=== PATIENT | female | born 1980 | race Caucasian/White ===

== ENCOUNTER 2024-06-06 08:19 | Outpatient (AMB) | payer OTHER, SELFPAY ==
--- NOTE | 2024-06-06 08:25 | A.OFFPC_ITS ---
Vital Signs 06/06/24 08:26 Height 5 ft 5 in Weight 239 lb BMI 39.8 BP 120/80 Blood Pressure Location Rt brachial Position Sitting Pulse 65 Pulse Source Pulse Oximeter Pulse Oximetry (%) 97 Oxygen Delivery Method Room Air Intake Visit Reasons: Annual Physical Intake Note: pt is here for establish care, requesting PE pap: 2021 mammo: never done yet Fire Alarm Technician Required: No Accompanied by: Self / Same As Patient Allergies No Known Allergies [No Known Allergies*] Allergy (Verified 06/06/24 09:07) Medication List - Last Reconciled 06/06/24 by Kellee Costa MD norethindrone (contraceptive) 0.35 mg PO DAILY Tobacco use date assessed: 06/06/24 Dental Screening Dental Screen Date: 06/06/24 Did you have a dental visit in the last 12 months?: Yes Did you have a dental problem in the last 6 months where you did not have access to dental care?: No Was dental information given to patient?: Patient has dentist HPI HPI Comments History of Present Illness Details 44-year-old lady new to practice, here t [place] to establish care with new PCP, and requesting physical exam . She is up-to-date with her Pap, patient states she had it done in 2021 with benign findings, but has never had a mammogram for breast cancer screening. She has 1 child, conceive through in vitro fertilization. Had gallstones in the past underwent laparoscopic cholecystectomy. ] She states that she has been feeling well, with no complaints at present time. [facility] Medical History Obesity (BMI 30-39.9) Family history of thyroid disease History of in vitro fertilization History of cholelithiasis Surgical History Hx of section Hx of cholecystectomy Family History Mother Skin cancer Thyroid disease Father Pulmonary fibrosis Alcoholism Crohn's disease Paternal Aunt Bipolar disorder Crohn's disease Paternal Grandmother Bipolar disorder Maternal Aunt Substance abuse Diabetes mellitus Maternal Grandfather Alzheimer's dementia Diabetes mellitus Maternal Grandmother Alzheimer's dementia Diabetes mellitus Social History Housing: House Alcohol intake: current Alcohol intake frequency: a few times a week Alcohol type: beer Patient Tobacco Use Status: Never used Tobacco e-Cigarette/Vaping Use: Never Used service: No Current occupational status: employed Current occupation: teacher, [place] Current occupational exposures/hazards: No Cognitive needs: No Hearing needs: No Vision needs: No Female Reproductive History Menstrual Age of Menarche: 14 Duration of menses: 6-7 days Date of last menstrual period: 05/30/24 control method: pills Date of last pap smear: 01/02/22 Questionnaire PHQ-9 Over the last 2 weeks, how often have you been bothered by any of the following problems? 1. Little interest or pleasure in doing things: not at all 2. Feeling down, depressed, or hopeless: not at all 3. Trouble falling or staying asleep, or sleeping too much: not at all 4. Feeling tired or having little energy: not at all 5. Poor appetite or overeating: not at all 6. Feeling bad about yourself - or that you are a failure or have let yourself or your family down: not at all 7. Trouble concentrating on things, such as reading the newspaper or watching television: several days 8. Moving or speaking so slowly that other people could have noticed. Or the opposite - being so fidgety or restless that you have been moving around a lot more than usual: not at all 9. Thoughts that you would be better off or of hurting yourself in some way: not at all Total score: 1 Depression Screening Interpretation: Negative Depression Screening Done: Yes 65000 - PHQ-9 Billing: Yes Source: Developed by Drs. Familia Sanderson, Dione Mohr, Adin Flores and colleagues, with an educational yonas from [email or web address]. Thrive Questionnaire Date Thrive assessed: 06/03/24 I am a: Patient What is your living situation today?: I have a steady place to live Within the past 12 months, did the food you bought not last and you didn't have the money to get more?: Never true Within the past 12 months, did you worry whether your food would run out before you got money to buy more?: Never true Do you have trouble paying for medicines?: No Do you have trouble getting transportation to medical appointments?: No Do you have trouble paying your heating and electricity bill?: No Do you have trouble taking care of your child, family member or friend?: No Do you have trouble with day-to-day activities such as bathing, preparing meals, shopping, managing finances, etc.?: No Are you currently unemployed and looking for a job?: No Are you interested in more education?: No Please select the resources that you would like help with: Housing/Halfway Currently or been in a relationship where the following occur: No concerns reported THRIVE Score: 0 AUDIT C Alcohol Use Questionnaire (AUDIT-C) 1. How often do you have a drink containing alcohol?: 2-3 times a week 2. How many drinks containing alcohol do you have on a typical day when you are drinking?: 1 or 2 3. How often do you have six or more drinks on one occasion?: Less than monthly Total Score: 4 Score Reviewed/Action Taken: Yes TRISTAN-7 AMB Questionnaire TRISTAN-7 Date TRISTAN - 7 assessed: 06/06/24 Feeling nervous, anxious, or on edge: 1 = Several days Not being able to stop or control worryin = Several days Worrying too much about different things: 1 = Several days Trouble relaxin = More than half the days Being so restless that it is hard to sit still: 2 = More than half the days Becoming easily annoyed or irritable: 2 = More than half the days Feeling afraid as if something awful might happen: 1 = Several days Total TRISTAN-7 score (0-4 normal; 5-9 mild; 10-14 moderate; 15-21 severe): 10 Source: Developed by Drs. Familia Sanderson, Dione Mohr, Adin Flores and colleagues, with an educational yonas from [email or web address]. TRISTAN-7 Assessment Billing TRISTAN-7 Assessment Tool: TRISTAN-7 Assessment 38016 Review of Systems Const All systems reviewed & are unremarkable except as noted in HPI and below Denies body aches, Denies fatigue, Denies fever(s) and Denies headache(s) Eyes Denies change in vision ENT Denies dizziness, Denies headache(s), Denies nasal congestion, Denies nasal discharge and Denies sore throat Card Denies chest pain, Denies lightheadedness, Denies palpitations and Denies dyspnea Resp Denies chest congestion, Denies cough, Denies dyspnea and Denies wheezing GI Denies abdominal pain, Denies change in bowel habits and Denies heartburn Denies hematuria, Denies urinary frequency, Denies dysuria and Denies urinary urgency Musc Denies arthralgias, Denies joint swelling and Reports stiffness Skin/Breast Denies breast pain, Denies breast mass, Denies lesions and Denies rash Neuro Denies dizziness and Denies headache(s) Psych Reports no additional complaints Endo Denies fatigue, Denies polydipsia, Denies polyuria and Denies palpitations Beau/Lymph Denies easy bruising Aller/Immun Denies seasonal rhinorrhea and Denies wheezing Physical exam (Primary Care) Vital Signs: Last Vital Signs Pulse 65 06/06/24 08:26 BP 120/80 06/06/24 08:26 Pulse Ox 97 06/06/24 08:26 Oxygen Delivery Method Room Air 06/06/24 08:26 BMI result Body Mass Index 39.8 Tobacco/Smoking Status: Tobacco use Status Tobacco use date assessed 06/06/24 06/06/24 08:34 Patient Tobacco Use Status Never used Tobacco 06/06/24 08:34 e-Cigarette/Vaping Use Never Used 06/06/24 08:34 PHQ-9: PHQ-9 Score PHQ-9: Total score 1 06/06/24 09:17 Depression Screening Interpretation: Negative Thrive Assessment: Date of Thrive Assessment Date Thrive assessed 06/03/24 06/06/24 08:26 Currently or been in a relationship where the following occur: No concerns reported Const General: no acute distress and alert Orientation/consciousness: patient oriented x3 HENMT Head: Yes normocephalic Ears: external ears normal, TM's normal bilaterally and EAC's normal General nose exam: Normal external nose present Face and sinus: Yes face symmetric Mouth: Normal oral and palatal mucosa present, lip normal, tongue normal, oropharynx normal and moist mucous membranes Eyes General: appearance normal, both eyes and all related structures Eyelids: Yes eyelids normal Conjunctivae: conjunctivae normal Sclerae: sclerae normal Pupils: Equal, round and reactive pupils present EOM: EOMs intact bilaterally Neck Neck: Yes full ROM, Yes no lymphadenopathy and Yes supple Thyroid: Thyroid normal Resp Effort & Inspection: normal respiratory effort and able to speak in complete sentences Auscultation: clear to auscultation bilaterally Cardio Rate: regular rate Rhythm: regular rhythm Heart sounds: S1 normal heart sound present and S2 normal heart sound present GI Palpation (GI): Soft to palpation, nontender, no guarding and no masses Auscultation: normal bowel sounds General: Yes no CVA tenderness Back/Spine/Pelvis Back: no CVA tenderness and No back tenderness Skin General skin exam: no rashes or lesions noted Neuro General: patient oriented x3, gait normal, moves all extremities, Normal light touch and pain sensation, no focal motor deficits and CN's II-XI intact omid aterally Cranial nerves: Yes Equal, round and reactive pupils present Cognition (Neuro): normal cognition Gait exam (Neuro): Normal gait present Motor exam (neuro): 5/5 motor strength present throughout Extrem General: Yes normal to inspection, Yes full ROM, Yes no joint enlargement, Yes no pedal edema and Yes normal gait Psych Appearance: grossly normal and well kempt Mental Status: mental status grossly normal Speech and movement: Normal speech and movement present Affect: normal affect Attitude: cooperative Thought process: Normal thought process present Thought content: Normal thought content present Assessment and Plan Assessment & Plan (1) Annual visit for general adult medical examination with abnormal findings: Code(s): Z00.01 - Encounter for general adult medical examination with abnormal findings Plan: Will check appropriate labs. Recommended dental visit every 6 months and regular eye exams, at least every 2 years. Take adequate calcium in diet and vitamin-D 3 at 2000 IU per cap once a day, in addition to weight-bearing exercises to help maintain good muscle tone and weight control. Instructed to do self-breast exam, and recommended to get yearly mammogram, referral ordered. Referred to [facility] for her routine Pap and pelvic exam and for control maintenance. Up-to-date with her COVID vaccine including the booster, gets yearly flu shots and up-to-date with Tdap per patient. Declined getting colon cancer screening at present (2) Family history of thyroid disease: Code(s): Z83.49 - Family history of other endocrine, nutritional and metabolic diseases Plan: Will check TSH and free T4 (3) Screening for malignant neoplasm of cervix: Code(s): Z12.4 - Encounter for screening for malignant neoplasm of cervix Plan: Referred to OBGYN at [facility] for her routine Pap and pelvic exam and maintenance of control pills (4) Obesity (BMI 30-39.9): Code(s): E66.9 - Obesity, unspecified Plan: \ Recommended focusing on improving health instead of dieting. Mediterranean diet is a healthy diet that helps, limit food high in fat, sugar, and calories. Eat slowly, pay attention to portion sizes, plan your meals ahead of time, continue with regular physical activity, at least 150 minutes of moderate intensity exercise, or 90 minutes per week of vigorous exercise. Keeping a food diary, tracking what you eat and your physical activity can help assess what improvements you can make. There are many health problems associated with being overweight/obese, so it is important to improve your diet and exercise. There are medications and surgical options available, but Lifestyle changes are the 1st step. Orders: Orders Comprehensive [place]. Panel Fast 06/06/24 Z13.1 - Encounter for screening for diabetes mellitus, Z13.220 - Encounter for screening for lipoid disorders, Z83.49 - Family history of other endocrine, nutritional and metabolic diseases MM tomosynthesis screening BI 06/10/24 Z12.31 - Encounter for screening mammogram for malignant neoplasm of breast Lipid Panel 06/06/24 Z13.1 - Encounter for screening for diabetes mellitus, Z13.220 - Encounter for screening for lipoid disorders, Z83.49 - Family history of other endocrine, nutritional and metabolic diseases Vitamin D 25-OH Total 06/06/24 Z13.1 - Encounter for screening for diabetes mellitus, Z13.220 - Encounter for screening for lipoid disorders, Z83.49 - Family history of other endocrine, nutritional and metabolic diseases TSH reflex Free T4 06/06/24 Z13.1 - Encounter for screening for diabetes mellitus, Z13.220 - Encounter for screening for lipoid disorders, Z83.49 - Family history of other endocrine, nutritional and metabolic diseases Referrals [facility] Referral Z12.4 - Encounter for screening for malignant neoplasm of cervix Coding Level of Care Code New Pt Prev Care 40-64y(40293) Diagnoses Annual visit for general adult medical examination with abnormal findings Z00.01 Family history of thyroid disease Z83.49 Screening for malignant neoplasm of cervix Z12.4 Obesity (BMI 30-39.9) E66.9 Additional Codes TRISTAN-7 Assessment Billing - TRISTAN-7 Assessment Tool: TRISTAN-7 Assessment 15100 ([id number])
[2024-06-06 08:26] VITALS: BP 120/80; PULSE 65; O2SAT 97; BMI 39.8
== END 2024-06-06 09:26 | disposition home or self-care (01) ==
PROVIDERS: Visit Provider Internal Medicine
DX: Z00.00 Encounter for general adult medical examination without abnormal findings (principal); Z83.49 Family history of other endocrine, nutritional and metabolic diseases; E66.9 Obesity, unspecified; Z68.39 Body mass index [BMI] 39.0-39.9, adult
CPT/HCPCS: 99396

== ENCOUNTER 2024-06-10 09:36 | Outpatient (REF) | payer OTHER, SELFPAY ==
--- NOTE | ~2024-06-10 | MM_ITS ---
EXAMINATION: MM SCREENING DIGITAL BREAST TOMOSYNTHESIS, BILATERAL CLINICAL INFORMATION: Screening. Asymptomatic. COMPARISON: Mammography: This is a baseline mammogram. TECHNIQUE: Digital breast tomosynthesis is performed in both the craniocaudal and mediolateral oblique views along with computer-aided detection (CAD). Synthesized 2D images are generated from the tomosynthesis. FINDINGS: There are scattered areas of fibroglandular density (ACR BI-RADS breast composition Category b). There are no significant masses, abnormal calcifications, or other abnormalities. MM/MM tomosynthesis screening BI IMPRESSION: No mammographic evidence of malignancy. ASSESSMENT: BI-RADS BI-RADS 1 - Negative RECOMMENDATION: Routine annual mammography screening. 1 year F/U This examination should not preclude the clinical evaluation of a suspicious palpable abnormality. This patient's information was entered into a reminder system with a target due date for their next mammogram. Electronically signed by: Farnaz Adams MD 07/11/2024 11:39 PM EDT
== END 2024-06-10 09:37 | disposition home or self-care (01) ==
LOC: HO.MAMMO 09:36
PROVIDERS: PCP Internal Medicine; Visit Provider Internal Medicine
DX: Z12.31 Encounter for screening mammogram for malignant neoplasm of breast (principal)
CPT/HCPCS: 77063; 77067

== ENCOUNTER → 2024-06-10 09:45 | Outpatient (BNV) | payer OTHER, SELFPAY | PROVIDERS: PCP Internal Medicine; Visit Provider Radiology Diagnostic Radiology | DX: Z12.31 Encounter for screening mammogram for malignant neoplasm of breast (principal) | CPT/HCPCS: 77063; 77067 ==

== ENCOUNTER 2024-06-13 06:43 | Outpatient (REF) | payer OTHER, SELFPAY ==
[2024-06-13 10:50] LABS: Alanine Aminotransferase 12 U/L (0-31); Albumin Level 4.3 g/dL (3.5-5.0); Alkaline Phosphatase 44 U/L (39-117); Anion Gap 9 (12-20); Aspartate Amino Transferase 16 U/L (5-31); Bilirubin Total 0.3 mg/dL (0.0-1.0); Blood Urea Nitrogen 11 mg/dL (9-16); Calcium 9.1 mg/dL (8.4-10.2); Carbon Dioxide 29 mmol/L (22-29); Chloride 106 mmol/L (96-108); Cholesterol 146 mg/dL (<200); Estimated Glomerular Filt Rate > 60; Glucose Fasting 90 mg/dL (60-99); HDL Cholesterol 37 mg/dL (>40); LDL Cholesterol Calculated 86 mg/dL (<100); Potassium 4.2 mmol/L (3.3-5.1); Sodium 140 mmol/L (135-145); Total Protein 7.2 g/dL (6.5-8.0); Triglycerides 117 mg/dL (<150)
[2024-06-13 11:08] LABS: TSH reflex Free T4 2.09 uIU/mL (0.32-4.0); Vitamin D 25-OH Total 38.5 ng/mL (>30)
== END 2024-06-13 06:44 | disposition home or self-care (01) ==
LOC: HO.HMGCLDS 06:43
PROVIDERS: PCP Internal Medicine; Visit Provider Internal Medicine
DX: Z83.49 Family history of other endocrine, nutritional and metabolic diseases (principal); Z13.1 Encounter for screening for diabetes mellitus; Z13.220 Encounter for screening for lipoid disorders
CPT/HCPCS: 36415; 80053; 80061; 82306; 84443

== ENCOUNTER → 2024-09-01 14:34 | Outpatient (BNVA) | payer OTHER, SELFPAY | PROVIDERS: PCP Internal Medicine; Visit Provider Advanced Practice Midwife ==

== ENCOUNTER 2024-12-20 12:38 | Outpatient (AMB) | payer OTHER, SELFPAY ==
[2024-12-20 12:51] VITALS: BP 124/70; BMI 30.9
--- NOTE | 2024-12-20 12:51 | MHC.OFFVIS ---
Vital Signs 12/20/24 12:51 Height 5 ft 5 in Weight 186 lb BMI 30.9 BP 124/70 Intake Visit Reasons: 3 month pill check/DO NOT RS Tutoring Clinician: Tutoring Clinician Present Allergies No Known Allergies [No Known Allergies*] Allergy (Verified 12/20/24 12:51) Is last menstrual period known: Yes Last menstrual period: 11/28/24 HPI Comments Details: Patient is here today for a follow up control check she has been on Junel for 3 months and reports breakthrough bleeding in the 2nd and 3rd week despite taking the pill on time. She admits to having facial hair growth over the last 5-6 years which she shaves. She has been on control since age 18. 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 History of heavy and irregular cycles in the past. She bled less on progesterone only pills. She denies any contraindications to control such as: migraines with aura, history of DVT or pulmonary emboli, high blood pressure, liver disease, thrombolic disorders, Lupus, +CHACORTA, breast cancer, or smoking. [facility] Medical History (Updated 12/20/24 @ 13:23 by Valerie Bailon CNM) Abnormal uterine bleeding (AUB) Hirsutism Obesity (BMI 30-39.9) Family history of thyroid disease History of in vitro fertilization History of cholelithiasis Surgical History Hx of section Hx of cholecystectomy Family History Mother Skin cancer Thyroid disease Father Pulmonary fibrosis Alcoholism Crohn's disease Paternal Aunt Bipolar disorder Crohn's disease Paternal Grandmother Bipolar disorder Maternal Aunt Substance abuse Diabetes mellitus Maternal Grandfather Alzheimer's dementia Diabetes mellitus Maternal Grandmother Alzheimer's dementia Diabetes mellitus Social History Housing: House Alcohol intake: current Alcohol intake frequency: a few times a week Alcohol type: beer Patient Tobacco Use Status: Never used Tobacco e-Cigarette/Vaping Use: Never Used service: No Current occupational status: employed Current occupation: teacher, [employer] Current occupational exposures/hazards: No Cognitive needs: No Hearing needs: No Vision needs: No Female Reproductive History Menstrual Age of Menarche: 14 Date of last menstrual period: 11/28/24 Review of Systems Const All systems reviewed & are unremarkable except as noted in HPI and below Endo Reports no additional complaints Physical Exam Vital Signs: Last Vital Signs BP 124/70 12/20/24 12:51 BMI result Body Mass Index 30.9 Const General: cooperative, healthy appearing and no acute distress HEENT Other: Facial chin hair shaven short. Psych Appearance: well kempt Attitude: cooperative Thought process: Normal thought process present Assessment & Plan Assessment & Plan (1) Abnormal uterine bleeding: Code(s): N93.9 - Abnormal uterine and vaginal bleeding, unspecified Plan: Workup for AUB and hirsutism to include PCOS labs and ultrasound. Plan EMB at next visit for ultrasound review and follow up in person for test results. Preprocedure planning discussed taking 3 Advil with food and fluids 1 hour before procedure. Advised to take time off the pill prior to getting her labs obtained. Use of condoms in the meantime. The patient expressed understanding and agreement with the plan of care. (2) Hirsutism: Code(s): L68.0 - Hirsutism Category: Medical Plan: Discussed hormonal imbalances elevated testosterone, workup for PCOS, plan to discuss facial hair removal information at next visit. Plan All of her questions and concerns were addressed to the best of my ability. This note is constructed using voice recognition software. While every effort has been made to ensure accuracy, trade recruiter errors may have been included. Orders: Orders DHEA Sulfate Today L68.0 - Hirsutism, N92.6 - Irregular menstruation, unspecified, N93.9 - Abnormal uterine and vaginal bleeding, unspecified Thyroid Stimulating Hormone Today L68.0 - Hirsutism, N92.6 - Irregular menstruation, unspecified, N93.9 - Abnormal uterine and vaginal bleeding, unspecified Prolactin Today L68.0 - Hirsutism, N92.6 - Irregular menstruation, unspecified, N93.9 - Abnormal uterine and vaginal bleeding, unspecified US pelvic and transvaginal Today L68.0 - Hirsutism, N92.6 - Irregular menstruation, unspecified, N93.9 - Abnormal uterine and vaginal bleeding, unspecified Testosterone, Free/Total Today L68.0 - Hirsutism, N92.6 - Irregular menstruation, unspecified, N93.9 - Abnormal uterine and vaginal bleeding, unspecified 17 Hydroxyprogesterone Today L68.0 - Hirsutism, N92.6 - Irregular menstruation, unspecified, N93.9 - Abnormal uterine and vaginal bleeding, unspecified Coding Level of Care Code Est Pt Level 3 (44236) Diagnoses Abnormal uterine bleeding N93.9 Hirsutism L68.0
== END 2024-12-20 13:57 | disposition home or self-care (01) ==
PROVIDERS: PCP Internal Medicine; Visit Provider Advanced Practice Midwife
DX: N93.9 Abnormal uterine and vaginal bleeding, unspecified (principal); L68.0 Hirsutism
CPT/HCPCS: 99213

== ENCOUNTER 2025-01-13 10:41 | Outpatient (REF) | payer OTHER, SELFPAY ==
--- NOTE | ~2025-01-13 | US_ITS ---
EXAMINATION: US PELVIS CLINICAL INFORMATION: History dizziness and COMPARISON: None available. TECHNIQUE: Ultrasound of the pelvis is performed using both transabdominal and transvaginal transducers along with Doppler. Transvaginal imaging is performed due to inadequate visualization transabdominally. FINDINGS: Uterus: The uterus is anteverted , anteflexed and measures 8.6 x 3.9 x 4.3. The double wall endometrial thickness is 0.5 cm. The uterus is smooth in contour and has normal myometrial echogenicity. No visible fibroid. There is fluid seen in the lower uterine/cervical segment with calcifications Adnexa: Both ovaries are visualized. There is normal color flow to the adnexa. There is no ovarian torsion. There is no pelvic ascites or fluid collection. Right ovary measures 3.3 x 1.2 x 1.8 cm. Volume 3.7 now. There is anechoic cysts cyst right ovary measuring 1.2 x 0.9 x 0.9 cm Left ovary measures 3.2 x 1.7 x 2.4 cm. Volume 6.8 mL. There are 2 anechoic cyst measuring 0.9 x 0.7 x 0.8 CM and 0.9 x 0.7 x 1.0 cm. A nonvascular hypoechoic structure seen adjacent left ovary question hydrosalpinx.. US/US pelvic and transvaginal IMPRESSION: Suspect left hydrosalpinx. Bilateral ovarian cyst. Fluid seen within the lower uterine/cervical canal. Electronically signed by: Jin Sutton MD 01/13/2025 01:50 PM [facility]
--- OUTSIDE RECORDS SUMMARY | 2025-01-13 12:08 | XMS_ITS | Patient Health Record ---
Author Organization [facility], [facility] Address [address] [place] [phone] Support Name Relationship Address Phone KIM GARRIDO Guarantor Unknown Unavailable REASON FOR REFERRAL No Information PLAN OF TREATMENT No Information Insurance Providers Payer Name Payer Address Payer Phone Subscriber Number Group Number Insured Name Patient Relationship to Insured Coverage Start Date Coverage End Date HNE MEDICARE 1 [facility] [id number] [place] [id number] KIM GARRIDO Self - patient is the insured 2
== END 2025-01-13 10:42 | disposition home or self-care (01) ==
LOC: HO.US 10:41
PROVIDERS: PCP Internal Medicine; Visit Provider Advanced Practice Midwife
DX: L68.0 Hirsutism (principal); N93.9 Abnormal uterine and vaginal bleeding, unspecified; N92.6 Irregular menstruation, unspecified
CPT/HCPCS: 76830; 76856

== ENCOUNTER → 2025-01-13 10:42 | Outpatient (BNV) | payer OTHER, SELFPAY | PROVIDERS: PCP Internal Medicine; Visit Provider Radiology Diagnostic Radiology | DX: N83.201 Unspecified ovarian cyst, right side (principal); N83.202 Unspecified ovarian cyst, left side | CPT/HCPCS: 76830; 76856 ==

== ENCOUNTER 2025-01-30 16:01 | Outpatient (REF) | payer OTHER, SELFPAY ==
[2025-01-30 17:48] LABS: Thyroid Stimulating Hormone 4.91 uIU/mL (0.32-4.0)
[2025-01-31 07:34] LABS: DHEA Sulfate 145 mcg/dL (15-205); Prolactin 15.3 ng/mL
[2025-02-04 13:42] LABS: Testosterone, Free 1.9 pg/mL (0.1-6.4); Testosterone, Total 15 ng/dL (2-45)
== END 2025-01-30 16:02 | disposition home or self-care (01) ==
LOC: HO.LAB 16:01
PROVIDERS: PCP Internal Medicine; Visit Provider Advanced Practice Midwife
DX: L68.0 Hirsutism (principal); N93.9 Abnormal uterine and vaginal bleeding, unspecified; N92.6 Irregular menstruation, unspecified
CPT/HCPCS: 36415; 82627; 83498; 84146; 84402; 84403; 84443

== ENCOUNTER 2025-02-07 07:55 | Outpatient (AMB) | payer OTHER, SELFPAY ==
--- NOTE | 2025-02-07 07:57 | A.OFFVIS_ITS ---
Vital Signs 02/07/25 07:58 Height 5 ft 5 in Weight 186 lb BMI 30.9 BP 114/70 Intake Visit Reasons: EMB/Ultrasound/lab follow up Urban Renewal Manager: Urban Renewal Manager Present (Radha) Allergies No Known Allergies [No Known Allergies*] Allergy (Verified 02/07/25 07:58) Is last menstrual period known: Yes Last menstrual period: 01/31/25 HPI Comments Details: Patient is here today for a follow up pelvic ultrasound EMB procedure. History of irregular and heavy menstrual periods, stopped p.o. piece and reports normal cycle last month. History of infertility. She denies any left-sided pelvic pain. History of migraine with aura. She reports she has not had a opportunity to see her primary care for her abnormal thyroid level. History of hypothyroidism in the family-mom. TSH 4.91, 01/30/25. [facility] Medical History (Updated 02/07/25 @ 08:32 by Valerie Bailon CNM) Ovarian cyst Migraine with aura Abnormal uterine bleeding (AUB) Hirsutism Obesity (BMI 30-39.9) Family history of thyroid disease History of in vitro fertilization History of cholelithiasis Surgical History Hx of section Hx of cholecystectomy Family History Mother Skin cancer Thyroid disease Father Pulmonary fibrosis Alcoholism Crohn's disease Paternal Aunt Bipolar disorder Crohn's disease Paternal Grandmother Bipolar disorder Maternal Aunt Substance abuse Diabetes mellitus Maternal Grandfather Alzheimer's dementia Diabetes mellitus Maternal Grandmother Alzheimer's dementia Diabetes mellitus Social History Housing: House Alcohol intake: current Alcohol intake frequency: a few times a week Alcohol type: beer Patient Tobacco Use Status: Never used Tobacco e-Cigarette/Vaping Use: Never Used service: No Current occupational status: employed Current occupation: teacher, [employer] Current occupational exposures/hazards: No Cognitive needs: No Hearing needs: No Vision needs: No Female Reproductive History Menstrual Age of Menarche: 14 Date of last menstrual period: 01/31/25 Review of Systems Const All systems reviewed & are unremarkable except as noted in HPI and below Physical Exam Vital Signs: Last Vital Signs BP 114/70 02/07/25 07:58 BMI result Body Mass Index 30.9 Const General: cooperative, healthy appearing and no acute distress Orientation/consciousness: patient oriented x3 GI Inspection: Yes normal to inspection Palpation (GI): Soft to palpation and Other GI palpation findings present (Nontender) Rectal Exam - Female: visual inspection normal General: Yes bladder normal to palpation External Female Exam: normal appearance of the urethra Speculum Exam - Vagina: normal appearance of the vagina, normal palpation, normal vaginal discharge and vaginal bleeding (small amount) Speculum Exam - Cervix: normal appearance of the cervix and normal palpation Bimanual exam- vagina & uterus: normal bimanual exam, normal palpation, uterine size normal, bladder normal to palpation, normal palpation, uterine shape normal and non-tender Bimanual Exam- Adnexa, other: normal adnexae OB/external & speculum: vaginal bleeding (small amount) Neuro General: patient oriented x3 Results AMB Test Urine AMB Test Urine Negative Last Edit by KATHLEEN Bhatia on 02/07/25 08:05 Results Reviewed Results Reviewed: Laboratory Last Values Tst Clinic Negative 02/07/25 08:04 [place] [address] Ultrasound Report Signed Patient: Ml Walsh MR#: [id number] : 1980 Acct:[id number] Age/Sex: 44 / F ADM Date: 01/13/25 Loc: HO.US Attending Dr: Valerie Bailon CNM Ordering Physician: Valerie Bailon CNM Date of Service: 01/13/25 Procedure(s): US pelvic and transvaginal Accession Number(s): [id number] cc: Kellee Costa MD; Valerie Bailon CNM~ EXAMINATION: US PELVIS CLINICAL INFORMATION: History dizziness and COMPARISON: None available. TECHNIQUE: Ultrasound of the pelvis is performed using both transabdominal and transvaginal transducers along with Doppler. Transvaginal imaging is performed due to inadequate visualization transabdominally. FINDINGS: Uterus: The uterus is anteverted , anteflexed and measures 8.6 x 3.9 x 4.3. The double wall endometrial thickness is 0.5 cm. The uterus is smooth in contour and has normal myometrial echogenicity. No visible fibroid. There is fluid seen in the lower uterine/cervical segment with calcifications Adnexa: Both ovaries are visualized. There is normal color flow to the adnexa. There is no ovarian torsion. There is no pelvic ascites or fluid collection. Right ovary measures 3.3 x 1.2 x 1.8 cm. Volume 3.7 now. There is anechoic cysts cyst right ovary measuring 1.2 x 0.9 x 0.9 cm Left ovary measures 3.2 x 1.7 x 2.4 cm. Volume 6.8 mL. There are 2 anechoic cyst measuring 0.9 x 0.7 x 0.8 CM and 0.9 x 0.7 x 1.0 cm. A nonvascular hypoechoic structure seen adjacent left ovary question hydrosalpinx.. US/US pelvic and transvaginal IMPRESSION: Suspect left hydrosalpinx. Bilateral ovarian cyst. Fluid seen within the lower uterine/cervical canal. Electronically signed by: Jin Sutton MD 01/13/2025 01:50 PM [facility] Dictated By: Jin Sutton MD Signed By: <Electronically signed by Jin Sutton MD in OV> 01/13/25 1350 DD/ 1104 TD/TT: 01/13/25 1125 Dog Hair Clipper: JUSTINA Assessment & Plan Assessment & Plan (1) Ovarian cyst: Code(s): N83.209 - Unspecified ovarian cyst, unspecified side Category: Medical Qualifiers: Laterality: bilateral Qualified Code(s): N83.201 - Unspecified ovarian cyst, right side; N83.202 - Unspecified ovarian cyst, left side Plan: Repeat ultrasound planned, follow up ultrasound appointment to be made. Counseled regarding left hydro salpinx appearance. Advised to call if there is any left-sided pelvic pain. (2) Abnormal thyroid stimulating hormone level: Code(s): R79.89 - Other specified abnormal findings of blood chemistry Plan: Effects of thyroid level on menstrual cycles. Monitor menstrual cycles, report any unscheduled bleeding, bleeding episodes <24 days apart or heavy/prolonged menstrual bleeding. Call the office for a follow up for any concerns. Plan Advised to speak with her primary care as soon as possible to discuss follow up in evaluation for thyroid level. The patient expressed understanding and agreement with the plan of care. All of her questions and concerns were addressed to the best of my ability. This note is constructed using voice recognition software. While every effort has been made to ensure accuracy, field seismologist errors may have been included. Orders: Orders US pelvic and transvaginal 2 Months N83.209 - Unspecified ovarian cyst, unspecified side AMB HCG Urine Test Today N93.9 - Abnormal uterine and vaginal bleeding, unspecified Medications: Discontinued norethindrone ac-eth estradiol 1.5-30 mg-mcg () Discontinued Reason: No Longer Medically Relevant 1 tab PO DAILY 84 tabs 0RF Coding Level of Care Code Est Pt Level 3 (24584) Diagnoses Cysts of both ovaries N83.201; N83.202 Laterality: bilateral Abnormal thyroid stimulating hormone level R79.89
[2025-02-07 07:58] VITALS: BP 114/70; BMI 30.9
--- OUTSIDE RECORDS SUMMARY | 2025-02-07 07:59 | XMS_ITS | Patient Health Record ---
Author Organization [facility], [facility] Address [address] [place] [phone] Support Name Relationship Address Phone KIM GARRIDO Guarantor Unknown Unavailable REASON FOR REFERRAL No Information PLAN OF TREATMENT No Information Insurance Providers Payer Name Payer Address Payer Phone Subscriber Number Group Number Insured Name Patient Relationship to Insured Coverage Start Date Coverage End Date [employer] [facility] [address] [place] [id number] [phone] [id number] KIM GARRIDO Self - patient is the insured 2
== END 2025-02-07 08:32 | disposition home or self-care (01) ==
LOC: HO.HWS 07:55
PROVIDERS: PCP Internal Medicine; Visit Provider Advanced Practice Midwife
DX: N83.201 Unspecified ovarian cyst, right side (principal); N83.202 Unspecified ovarian cyst, left side; R79.89 Other specified abnormal findings of blood chemistry; N93.9 Abnormal uterine and vaginal bleeding, unspecified
CPT/HCPCS: 99213

== ENCOUNTER → 2025-02-07 07:55 | Outpatient (BNVA) | payer OTHER, SELFPAY | PROVIDERS: PCP Internal Medicine; Visit Provider Advanced Practice Midwife | DX: N83.201 Unspecified ovarian cyst, right side (principal); N83.202 Unspecified ovarian cyst, left side; N93.9 Abnormal uterine and vaginal bleeding, unspecified; R79.89 Other specified abnormal findings of blood chemistry | CPT/HCPCS: 81025 ==

== ENCOUNTER 2025-05-16 11:15 | Outpatient (REF) | payer OTHER, SELFPAY ==
--- NOTE | ~2025-05-16 | US_ITS ---
CLINICAL HISTORY: N83.209 - Unspecified ovarian cyst, unspecified side Ultrasound of the female pelvis Comparison: US/MA/SR - US PELVIC AND TRANSVAGINAL - 01/13/25 11:03 EST Technique: Grayscale ultrasound with assistance of color Doppler. Transabdominal scanning performed for overall anatomy. Transvaginal scanning performed for better anatomic delineation. Findings: Anteverted uterus measures 9.0 x 5.0 x 6.0 cm, previously 10.6 x 3.9 x 4.3 cm. Homogeneous myometrium, no fibroid is seen. Mildly heterogeneous endometrium, mostly hyperechoic, 15 mm in thickness, no focal lesion or abnormal vascular flow is seen. Small nabothian cysts and minimal endocervical fluid. Normal right ovary, 2.3 x 3.4 x 2.8 cm. No abnormal vascular flow. Normal left ovary, 1.7 x 1.7 x 1.9 cm. No abnormal vascular flow. Follicular activity noted in both ovaries. Fluid containing tubular cystic structure is noted in the left adnexa 8 mm in diameter, similar to prior. No free fluid. Impression: 1. Mildly thickened endometrium 15 mm, uncertain etiology, no focal lesion or abnormal vascular flow, recommend considering follow-up in early proliferative phase. 2. Probable left hydrosalpinx, unchanged. 3. Minimal endocervical fluid and small nabothian cysts. 4. Normal ovaries. This document has been electronically signed by: Elsa Preciado MD on 05/17/2025 12:45:10
== END 2025-05-16 11:16 | disposition home or self-care (01) ==
LOC: HO.US 11:15
PROVIDERS: PCP Internal Medicine; Visit Provider Advanced Practice Midwife
DX: N83.209 Unspecified ovarian cyst, unspecified side (principal)
CPT/HCPCS: 76830; 76856

== ENCOUNTER → 2025-05-16 11:16 | Outpatient (BNV) | payer OTHER, SELFPAY | PROVIDERS: PCP Internal Medicine; Visit Provider Radiology Diagnostic Radiology | DX: N83.201 Unspecified ovarian cyst, right side (principal); N83.202 Unspecified ovarian cyst, left side | CPT/HCPCS: 76830; 76856 ==

== ENCOUNTER 2025-06-07 15:36 | Outpatient (AMB) | payer OTHER, SELFPAY ==
[2025-06-07 15:55] VITALS: BP 120/64
--- NOTE | 2025-06-07 15:55 | A.OFFVIS_ITS ---
Vital Signs 06/07/25 15:55 Height 5 ft 5 in BP 120/64 Blood Pressure Location Rt brachial Position Sitting Intake Visit Reasons: Ultra sound follow up Production Underwriter Required: No Information Interpreted: non-clinical & clinical Auto Body Painter: Auto Body Painter Present Allergies No Known Allergies (No Known Allergies*) Allergy (Verified 06/07/25 15:58) Is last menstrual period known: Yes Last menstrual period: 05/29/25 Post menopausal: No Patient : No Do you need a note to return to daycare/school/sports/work: No HPI Comments Details: Patient is here today for a follow up pelvic ultrasound. History of AUB and hydrosalpinx. She does not have any pelvic pain, her cycles have been normalized for the last 5 months since coming off of control. Overall she feels good being off the pill and wants to continue to give her body a break. She is looking for alternatives for BC. History of migraines with aura. [facility] Medical History Encounter to discuss test results Thickened endometrium Ovarian cyst Migraine with aura Abnormal uterine bleeding (AUB) Hirsutism Obesity (BMI 30-39.9) Family history of thyroid disease History of in vitro fertilization History of cholelithiasis Surgical History Hx of section Hx of cholecystectomy Family History Mother Skin cancer Thyroid disease Father Pulmonary fibrosis Alcoholism Crohn's disease Paternal Aunt Bipolar disorder Crohn's disease Paternal Grandmother Bipolar disorder Maternal Aunt Substance abuse Diabetes mellitus Maternal Grandfather Alzheimer's dementia Diabetes mellitus Maternal Grandmother Alzheimer's dementia Diabetes mellitus Social History Housing: House Alcohol intake: current Alcohol intake frequency: a few times a week Alcohol type: beer Patient Tobacco Use Status: Never used Tobacco e-Cigarette/Vaping Use: Never Used Patient : No service: No Current occupational status: employed Current occupation: teacher, [employer] Current occupational exposures/hazards: No Cognitive needs: No Hearing needs: No Vision needs: No Female Reproductive History Menstrual Age of Menarche: 14 Duration of menses: 3-5 days Date of last menstrual period: 05/29/25 Review of Systems Const All systems reviewed & are unremarkable except as noted in HPI and below Endo Reports no additional complaints Physical Exam Vital Signs: Last Vital Signs BP 120/64 06/07/25 15:55 Const General: cooperative, healthy appearing and no acute distress Psych Appearance: well kempt Attitude: cooperative Thought process: Normal thought process present Results Reviewed Results Reviewed: [address] [address] Ultrasound Report Signed Patient: Ml Walsh MR#: [id number] : 1980 Acct:[id number] Age/Sex: 45 / F ADM Date: 05/16/25 Loc: HO.US Attending Dr: Valerie Bailon CNM Ordering Physician: Valerie Bailon CNM Date of Service: 05/16/25 Procedure(s): US pelvic and transvaginal Accession Number(s): [id number] cc: Kellee Costa MD; Valerie Bailon CNM~ CLINICAL HISTORY: N83.209 - Unspecified ovarian cyst, unspecified side Ultrasound of the female pelvis Comparison: US/MI/SR - US PELVIC AND TRANSVAGINAL - 01/13/25 11:03 EST Technique: Grayscale ultrasound with assistance of color Doppler. Transabdominal scanning performed for overall anatomy. Transvaginal scanning performed for better anatomic delineation. Findings: Anteverted uterus measures 9.0 x 5.0 x 6.0 cm, previously 10.6 x 3.9 x 4.3 cm. Homogeneous myometrium, no fibroid is seen. Mildly heterogeneous endometrium, mostly hyperechoic, 15 mm in thickness, no focal lesion or abnormal vascular flow is seen. Small nabothian cysts and minimal endocervical fluid. Normal right ovary, 2.3 x 3.4 x 2.8 cm. No abnormal vascular flow. Normal left ovary, 1.7 x 1.7 x 1.9 cm. No abnormal vascular flow. Follicular activity noted in both ovaries. Fluid containing tubular cystic structure is noted in the left adnexa 8 mm in diameter, similar to prior. No free fluid. Impression: 1. Mildly thickened endometrium 15 mm, uncertain etiology, no focal lesion or abnormal vascular flow, recommend considering follow-up in early proliferative phase. 2. Probable left hydrosalpinx, unchanged. 3. Minimal endocervical fluid and small nabothian cysts. 4. Normal ovaries. This document has been electronically signed by: Elsa Preciado MD on 05/17/2025 12:45:10 Dictated By: Elsa Preciado MD Signed By: <Electronically signed by Elsa Preciado MD in OV> 05/17/25 1245 DD/ 1245 TD/TT: 05/17/25 1245 Internet Technology Manager: Assessment & Plan Assessment & Plan (1) Thickened endometrium: Code(s): R93.89 - Abnormal findings on diagnostic imaging of other specified body structures Category: Medical Plan: Discussed: Ultrasound findings- Impression: 1. Mildly thickened endometrium 15 mm, uncertain etiology, no focal lesion or abnormal vascular flow, recommend considering follow-up in early proliferative phase. 2. Probable left hydrosalpinx, unchanged. 3. Minimal endocervical fluid and small nabothian cysts. 4. Normal ovaries. Plan repeat ultrasound after a menstrual cycle in the proliferative phase. If remains thickened I recommend she have an endometrial biopsy. Follow up ultrasound combined with her annual exam 30 minute appointment. Monitor menstrual cycles, report any unscheduled bleeding, bleeding episodes <24 days apart or heavy/prolonged menstrual bleeding. Call the office for a follow up for any concerns. Advised to call if there is any pelvic pain on the left side for immediate evaluation. (2) Counseling for control, natural family planning: Code(s): Z30.02 - Counseling and instruction in natural family planning to avoid Plan Discussed: Contraceptive alternatives including barrier methods, menstrual calendar sagar, withdrawal, diaphragm, and spermicides reviewed with the [facility] efficacy chart, patient will consider all her options. If desires to have the Caya diaphragm, advised to call the office for a fitting. The patient expressed understanding and agreement with the plan of care. All of her questions and concerns were addressed to the best of my ability. This note is constructed using voice recognition software. While every effort has been made to ensure accuracy, automatic i threading machine feeder errors may have been included. Orders: Orders US pelvic and transvaginal 08/21/25 R93.89 - Abnormal findings on diagnostic imaging of other specified body structures, Z71.2 - Person consulting for ex planation of examination or test findings Coding Level of Care Code Est Pt Level 3 (30203) Diagnoses Thickened endometrium R93.89 Counseling for control, natural family planning Z30.02
== END 2025-06-07 18:35 ==
LOC: HO.HWS 15:37
PROVIDERS: PCP Internal Medicine; Visit Provider Advanced Practice Midwife
DX: R93.89 Abnormal findings on diagnostic imaging of other specified body structures (principal); Z30.02 Counseling and instruction in natural family planning to avoid pregnancy
CPT/HCPCS: 99213

== ENCOUNTER 2025-06-27 13:28 | Outpatient (AMB) | payer OTHER, SELFPAY ==
[2025-06-27 13:47] VITALS: BP 124/72; PULSE 79; RESP 15; TEMP 36.9; O2SAT 99; BMI 30.8
--- NOTE | 2025-06-27 13:47 | MHC.PC.OV ---
Vital Signs 06/27/25 13:47 Height 5 ft 5 in Weight 185 lb BMI 30.8 BP 124/72 Blood Pressure Location Lt brachial Position Sitting Respiration 15 Pulse 79 Pulse Source Pulse Oximeter Temp 98.4 F Temp Source Oral Pulse Oximetry (%) 99 Oxygen Delivery Method Room Air Intake Visit Reasons: Annual PE Intake Note: Pt is here today for her PE: last mammogram 06/10/24 Is last menstrual period known: Yes Last menstrual period: 06/24/25 Allergies No Known Allergies (No Known Allergies*) Allergy (Verified 06/27/25 14:03) Medication List - Last Reconciled 06/27/25 by Kellee Costa MD No Known Home Meds Tobacco use date assessed: 06/27/25 Dental Screening Dental Screen Date: 06/27/25 Did you have a dental visit in the last 12 months?: Yes Did you have a dental problem in the last 6 months where you did not have access to dental care?: No Was dental information given to patient?: Patient has dentist HPI Annual PE HPI Details - The patient is a 45-year-old female presenting for a physical examination - she is currently being seen by [facility] for prolonged menstrual periods , which has persisted despite hormonal treatments and has a ovarian cyst, thickened endometrium, with fluid seen in left fallopian tube which is currently being monitored with repeat ultrasound - Thyroid dysfunction is suspected due to elevated TSH levels and positive history for thyroid disorder, with further testing planned to assess thyroid function and rule out autoimmune causes. - The patient has lost 50 pounds in the past year through dietary changes and increased physical activity. -up-to-date with her breast cancer screening, last mammogram done in June 2024, scheduled for repeat screening mammogram in July 2025. -currently feels well, with no complaints of chest pain, no headache or lightheadedness, or shortness of breath. [facility] Medical History Encounter to discuss test results Thickened endometrium Ovarian cyst Migraine with aura Abnormal uterine bleeding (AUB) Hirsutism Obesity (BMI 30-39.9) Family history of thyroid disease History of in vitro fertilization History of cholelithiasis Surgical History Hx of section Hx of cholecystectomy Family History Mother Skin cancer Thyroid disease Father Pulmonary fibrosis Alcoholism Crohn's disease Paternal Aunt Bipolar disorder Crohn's disease Paternal Grandmother Bipolar disorder Maternal Aunt Substance abuse Diabetes mellitus Maternal Grandfather Alzheimer's dementia Diabetes mellitus Maternal Grandmother Alzheimer's dementia Diabetes mellitus Social History Housing: House Alcohol intake: current Alcohol intake frequency: a few times a week Alcohol type: beer Patient Tobacco Use Status: Never used Tobacco e-Cigarette/Vaping Use: Never Used service: No Current occupational status: employed Current occupation: teacher, [employer] Current occupational exposures/hazards: No Cognitive needs: No Hearing needs: No Vision needs: No Female Reproductive History Menstrual Age of Menarche: 14 Date of last menstrual period: 06/24/25 Questionnaire PHQ-9 Over the last 2 weeks, how often have you been bothered by any of the following problems? 1. Little interest or pleasure in doing things: not at all 2. Feeling down, depressed, or hopeless: not at all 3. Trouble falling or staying asleep, or sleeping too much: several days 4. Feeling tired or having little energy: not at all 5. Poor appetite or overeating: not at all 6. Feeling bad about yourself - or that you are a failure or have let yourself or your family down: not at all 7. Trouble concentrating on things, such as reading the newspaper or watching television: not at all 8. Moving or speaking so slowly that other people could have noticed. Or the opposite - being so fidgety or restless that you have been moving around a lot more than usual: not at all 9. Thoughts that you would be better off or of hurting yourself in some way: not at all Total score: 1 Depression Screening Interpretation: Negative Depression Screening Done: Yes 30031 - PHQ-9 Billing: Yes Source: Developed by Drs. Familia Sanderson, Dione Mohr, Adin Flores and colleagues, with an educational yonas from [employer]. Thrive Questionnaire Date Thrive assessed: 06/20/25 I am a: Patient What is your living situation today?: I have a steady place to live Within the past 12 months, did the food you bought not last and you didn't have the money to get more?: Never true Within the past 12 months, did you worry whether your food would run out before you got money to buy more?: Never true Do you have trouble paying for medicines?: No Do you have trouble getting transportation to medical appointments?: No Do you have trouble paying your heating and electricity bill?: No Do you have trouble taking care of your child, family member or friend?: No Do you have trouble with day-to-day activities such as bathing, preparing meals, shopping, managing finances, etc.?: No Are you currently unemployed and looking for a job?: No Are you interested in more education?: No Please select the resources that you would like help with: None Currently or been in a relationship where the following occur: No concerns reported THRIVE Score: 0 AUDIT C Alcohol Use Questionnaire (AUDIT-C) 1. How often do you have a drink containing alcohol?: 2-3 times a week 2. How many drinks containing alcohol do you have on a typical day when you are drinking?: 1 or 2 3. How often do you have six or more drinks on one occasion?: Less than monthly Total Score: 4 Score Reviewed/Action Taken: Yes TRISTAN-7 AMB Questionnaire TRISTAN-7 Date TRISTAN - 7 assessed: 06/27/25 Feeling nervous, anxious, or on edge: 1 = Several days Not being able to stop or control worryin = Not at all Worrying too much about different things: 1 = Several days Trouble relaxin = More than half the days Being so restless that it is hard to sit still: 2 = More than half the days Becoming easily annoyed or irritable: 2 = More than half the days Feeling afraid as if something awful might happen: 1 = Several days Total TRISTAN-7 score (0-4 normal; 5-9 mild; 10-14 moderate; 15-21 severe): 9 Source: Developed by Drs. Familia Sanderson, Dione Mohr, Adin Flores and colleagues, with an educational yonas from [employer] TRISTAN-7 Assessment Billing TRISTAN-7 Assessment Tool: TRISTAN-7 Assessment 59475 Review of Systems Const Denies body aches, Denies fatigue, Denies fever(s), Denies headache(s) and Denies weakness Eyes Denies change in vision, Denies eye discharge and Denies itchy eyes ENT Denies dizziness, Denies headache(s), Denies nasal congestion, Denies nasal discharge and Denies sore throat Card Denies chest pain, Denies lightheadedness, Denies palpitations and Denies dyspnea Resp Denies chest congestion, Denies cough, Denies dyspnea and Denies wheezing GI Denies abdominal pain, Denies change in bowel habits and Denies heartburn Reports as per HPI, Denies hematuria, Denies urinary frequency, Denies dysuria and Denies urinary urgency Musc Reports no additional complaints Skin/Breast Denies breast pain, Denies breast mass, Denies lesions and Denies rash Neuro Denies dizziness, Denies headache(s) and Denies weakness Psych Reports no additional complaints Endo Reports no additional complaints, Denies fatigue and Denies palpitations Beau/Lymph Denies easy bruising Aller/Immun Denies itchy eyes, Denies seasonal rhinorrhea and Denies wheezing Physical exam (Primary Care) Vital Signs: Last Vital Signs Temp 98.4 F 06/27/25 13:47 Pulse 79 06/27/25 13:47 Resp 15 06/27/25 13:47 BP 124/72 06/27/25 13:47 Pulse Ox 99 06/27/25 13:47 Oxygen Delivery Method Room Air 06/27/25 13:47 BMI result Body Mass Index 30.8 Tobacco/Smoking Status: Tobacco use Status Tobacco use date assessed 06/27/25 06/27/25 13:49 Patient Tobacco Use Status Never used Tobacco 06/27/25 13:49 e-Cigarette/Vaping Use Never Used 06/27/25 13:49 PHQ-9: PHQ-9 Score PHQ-9: Total score 1 07/03/25 23:38 Depression Screening Interpretation: Negative Thrive Assessment: Date of Thrive Assessment Date Thrive assessed 06/20/25 06/27/25 13:49 Currently or been in a relationship where the following occur: No concerns reported Advance Care Planning discussion: Completed/Scanned Date of discussion: 06/27/25 Who was present: Patient Forms completed: Health Care Proxy Time spent: 16-45 minutes Actual minutes spent: 2 Const General: no acute distress and alert Orientation/consciousness: patient oriented x3 HENMT Head: Yes normocephalic Ears: external ears normal, TM's normal bilaterally and EAC's normal General nose exam: Normal external nose present Face and sinus: Yes face symmetric Mouth: Normal oral and palatal mucosa present, oropharynx normal and moist mucous membranes Eyes General: appearance normal, both eyes and all related structures Eyelids: Yes eyelids normal Conjunctivae: conjunctivae normal Sclerae: sclerae normal EOM: EOMs intact bilaterally Neck Neck: Yes full ROM, Yes no lymphadenopathy and Yes supple Thyroid: Thyroid normal Chest Breast/axilla inspection: normal inspection of the breasts Breast/axilla palpation: normal palpation of the breasts Resp Effort & Inspection: normal respiratory effort and able to speak in complete sentences Auscultation: clear to auscultation bilaterally Cardio Rate: regular rate Rhythm: regular rhythm Heart sounds: S1 normal heart sound present and S2 normal heart sound present GI Palpation (GI): Soft to palpation, nontender, no guarding and no masses Auscultation: normal bowel sounds General: Yes no CVA tenderness Back/Spine/Pelvis Back: no CVA tenderness and No back tenderness Skin General skin exam: no rashes or lesions noted Neuro General: patient oriented x3, gait normal, moves all extremities, Normal light touch and pain sensation, no focal motor deficits and CN's II-XI intact bilaterally Cognition (Neuro): normal cognition Gait exam (Neuro): Normal gait present Motor exam (neuro): 5/5 motor strength present throughout Extrem General: Yes normal to inspection, Yes full ROM, Yes no joint enlargement, Yes no pedal edema and Yes normal gait Psych Appearance: grossly normal and well kempt Mental Status: mental status grossly normal Speech and movement: Normal speech and movement present Affect: normal affect Coding Level of Care Code Est Pt Prev Care 40-64y(46566) Diagnoses Annual visit for general adult medical examination with abnormal findings Z00.01 Family history of thyroid disease Z83.49 Abnormal uterine bleeding (AUB) N93.9 Thickened endometrium R93.89 Advance directive discussed with patient Z71.89 Additional Codes TRISTAN-7 Assessment Billing - TRISTAN-7 Assessment Tool: TRISTAN-7 Assessment 44791 ([id number]) PHQ-9 - 05420 - PHQ-9 Billing: Yes ([id number]) Vital Signs *Quality* - Advance Care Planning discussion: Completed/Scanned ([id number]) Vital Signs *Quality* - Time spent: 16-45 minutes ([id number]) Assessment & Plan Assessment & Plan (1) Annual visit for general adult medical examination with abnormal findings: Code(s): Z00.01 - Encounter for general adult medical examination with abnormal findings Plan: Will check appropriate labs. Recommended dental visit every 6 months and regular eye exams, at least every 2 years. Take adequate calcium in diet and vitamin-D 3 at 2000 IU per cap once a day, in addition to weight-bearing exercises to help maintain good muscle tone and weight control. Instructed to do self-breast exam, gets yearly breast cancer screening and is scheduled for another screening mammogram next month. Goes to [facility] for her routine Pap and pelvic exam and is currently being followed for abnormal uterine bleeding. Advised to get yearly flu shots but does not want to get further COVID vaccines (2) Family history of thyroid disease: Code(s): Z83.49 - Family history of other endocrine, nutritional and metabolic diseases Category: Medical Plan: Ordered TSH check, including a free T4 and free T3 (3) Abnormal uterine bleeding (AUB): Code(s): N93.9 - Abnormal uterine and vaginal bleeding, unspecified Category: Medical Plan: Will check CBC, and iron profile, followed by [facility], who scheduled her for a repeat pelvic ultrasound next week. (4) Thickened endometrium: Code(s): R93.89 - Abnormal findings on diagnostic imaging of other specified body structures Category: Medical Plan: Followed at [facility], scheduled for a repeat pelvic ultrasound August 2025. (5) Advance directive discussed with patient: Code(s): Z71.89 - Other specified counseling Plan: Initiated the conversation about Advanced Directives. Advanced Directives help patients prepare for current and future decisions about their medical treatment and place of care. Discussed with patient that it is a process where a patients current condition and prognosis are reviewed, their wishes for information regarding their illness are elicited, and likely medical dilemmas are presented and options discussed. Healthcare proxy form completed today. The form can be amended as needed, reviewed yearly and make changes as needed Orders: Orders Thyroid Peroxidase Antibodies 06/27/25 N93.9 - Abnormal uterine and vaginal bleeding, unspecified, R93.89 - Abnormal findings on diagnostic imaging of other specified body structures, Z00.01 - Encounter for general adult medical examination with abnormal findings, Z13.220 - Encounter for screening for lipoid disorders, Z83.49 - Family history of other endocrine, nutritional and metabolic diseases Free T4 (Free Thyroxine) 06/27/25 N93.9 - Abnormal uterine and vaginal bleeding, unspecified, R93.89 - Abnormal findings on diagnostic imaging of other specified body structures, Z00.01 - Encounter for general adult medical examination with abnormal findings, Z13.220 - Encounter for screening for lipoid disorders, Z83.49 - Family history of other endocrine, nutritional and metabolic diseases Complete Blood Count Auto Diff 06/27/25 N93.9 - Abnormal uterine and vaginal bleeding, unspecified, R93.89 - Abnormal findings on diagnostic imaging of other specified body structures, Z00.01 - Encounter for general adult medical examination with abnormal findings, Z13.220 - Encounter for screening for lipoid disorders, Z83.49 - Family history of other endocrine, nutritional and metabolic diseases Basic Metabolic Panel Fasting 06/27/25 N93.9 - Abnormal uterine and vaginal bleeding, unspecified, R93.89 - Abnormal findings on diagnostic imaging of other specified body structures, Z00.01 - Encounter for general adult medical examination with abnormal findings, Z13.220 - Encounter for screening for lipoid disorders, Z83.49 - Family history of other endocrine, nutritional and metabolic diseases Alanine Aminotransferase 06/27/25 N93.9 - Abnormal uterine and vaginal bleeding, unspecified, R93.89 - Abnormal findings on diagnostic imaging of other specified body structures, Z00.01 - Encounter for general adult medical examination with abnormal findings, Z13.220 - Encounter for screening for lipoid disorders, Z83.49 - Family history of other endocrine, nutritional and metabolic diseases Vitamin D 25-OH Total 06/27/25 N93.9 - Abnormal uterine and vaginal bleeding, unspecified, R93.89 - Abnormal findings on diagnostic imaging of other specified body structures, Z00.01 - Encounter for general adult medical examination with abnormal findings, Z13.220 - Encounter for screening for lipoid disorders, Z83.49 - Family history of other endocrine, nutritional and metabolic diseases Thyroid Stimulating Hormone 06/27/25 N93.9 - Abnormal uterine and vaginal bleeding, unspecified, R93.89 - Abnormal findings on diagnostic imaging of other specified body structures, Z00.01 - Encounter for general adult medical examination with abnormal findings, Z13.220 - Encounter for screening for lipoid disorders, Z83.49 - Family history of other endocrine, nutritional and metabolic diseases Triiodothyronine T3 Free 06/27/25 N93.9 - Abnormal uterine and vaginal bleeding, unspecified, R93.89 - Abnormal findings on diagnostic imaging of other specified body structures, Z00.01 - Encounter for general adult medical examination with abnormal findings, Z13.220 - Encounter for screening for lipoid disorders, Z83.49 - Family history of other endocrine, nutritional and metabolic diseases Aspartate Amino Transferase 06/27/25 N93.9 - Abnormal uterine and vaginal bleeding, unspecified, R93.89 - Abnormal findings on diagnostic imaging of other specified body structures, Z00.01 - Encounter for general adult medical examination with abnormal findings, Z13.220 - Encounter for screening for lipoid disorders, Z83.49 - Family history of other endocrine, nutritional and metabolic diseases Lipid Panel 06/27/25 N93.9 - Abnormal uterine and vaginal bleeding, unspecified, R93.89 - Abnormal findings on diagnostic imaging of other specified body structures, Z00.01 - Encounter for general adult medical examination with abnormal findings, Z13.220 - Encounter for screening for lipoid disorders, Z83.49 - Family history of other endocrine, nutritional and metabolic diseases
== END 2025-06-27 14:21 | disposition home or self-care (01) ==
LOC: HO.HMCC 13:29
PROVIDERS: PCP Internal Medicine; Visit Provider Internal Medicine
DX: Z00.01 Encounter for general adult medical examination with abnormal findings (principal); Z83.49 Family history of other endocrine, nutritional and metabolic diseases; N93.9 Abnormal uterine and vaginal bleeding, unspecified; R93.89 Abnormal findings on diagnostic imaging of other specified body structures; Z71.89 Other specified counseling; Z00.00 Encounter for general adult medical examination without abnormal findings

== ENCOUNTER → 2025-06-27 13:28 | Outpatient (BNVA) | payer OTHER, SELFPAY | PROVIDERS: PCP Internal Medicine; Visit Provider Internal Medicine | DX: Z00.01 Encounter for general adult medical examination with abnormal findings (principal); N93.9 Abnormal uterine and vaginal bleeding, unspecified; R93.89 Abnormal findings on diagnostic imaging of other specified body structures; Z71.89 Other specified counseling; Z83.49 Family history of other endocrine, nutritional and metabolic diseases | CPT/HCPCS: 96127 ==

== ENCOUNTER 2025-07-22 08:21 | Outpatient (REF) | payer OTHER, SELFPAY ==
--- NOTE | ~2025-07-22 | MM_ITS ---
EXAMINATION: MM SCREENING DIGITAL BREAST TOMOSYNTHESIS, BILATERAL CLINICAL INFORMATION: Screening. Asymptomatic. COMPARISON: Mammography: Comparison is made with available priors TECHNIQUE: Digital breast mammography with tomosynthesis is performed in both the craniocaudal and mediolateral oblique views along with computer-aided detection (CAD). FINDINGS: There are scattered areas of fibroglandular density (ACR BI-RADS breast composition Category b). Left: Asymmetry medial breast anterior depth on CC view. No suspicious calcifications or other abnormal findings. Right: There are no significant masses, abnormal calcifications, or other abnormalities. MM/MM tomosynthesis screening BI IMPRESSION: Additional imaging is recommended ASSESSMENT: BI-RADS BI-RADS 0 - Incomplete: Needs additional Imaging. RECOMMENDATION: 1. Additional views of the left breast. 2. Targeted ultrasound if warranted after review of the additional views. 3. Radiology department staff will contact the patient for additional imaging. Additional Imaging required This examination should not preclude the clinical evaluation of a suspicious palpable abnormality. This patient's information was entered into a reminder system with a target due date for their next mammogram. Electronically signed by: Chelsea Ibrahim DO 07/25/2025 03:15 PM EDT
== END 2025-07-22 08:22 | disposition home or self-care (01) ==
LOC: HO.MAMMO 08:21
PROVIDERS: PCP Internal Medicine; Visit Provider Internal Medicine
DX: Z12.31 Encounter for screening mammogram for malignant neoplasm of breast (principal)
CPT/HCPCS: 77063; 77067

== ENCOUNTER → 2025-07-22 08:30 | Outpatient (BNV) | payer OTHER, SELFPAY | PROVIDERS: PCP Internal Medicine; Visit Provider Internal Medicine | DX: Z12.31 Encounter for screening mammogram for malignant neoplasm of breast (principal) | CPT/HCPCS: 77063; 77067 ==

== ENCOUNTER 2025-08-23 12:19 | Outpatient (REF) | payer OTHER, SELFPAY ==
--- NOTE | ~2025-08-23 | MM_ITS ---
EXAMINATION: MM DIAGNOSTIC DIGITAL BREAST TOMOSYNTHESIS, LEFT Limited left breast ultrasound. CLINICAL INFORMATION: Call back from screening for left breast asymmetry on CC view. COMPARISON: Mammography: Priors on PACS. TECHNIQUE: Digital breast tomosynthesis is performed in both the craniocaudal and mediolateral oblique views along with computer-aided detection (CAD). Synthesized 2D images are generated from the tomosynthesis. FINDINGS: There are scattered areas of fibroglandular density. Asymmetry medial left breast on CC view persist on additional imaging projections. No suspicious calcifications or other abnormal findings. Targeted color Doppler ultrasound scanning in the medial left breast from 7-11 o'clock demonstrates normal fibronodular breast tissue. There is no sonographic abnormal finding to account for the mammographic asymmetry. MM/MM tomosynthesis added views L IMPRESSION: Asymmetry medial left breast on CC view anterior to middle depth without sonographic correlate. Recommend 6 month follow-up for further evaluation of stability. ASSESSMENT: BI-RADS Category 3: Probably benign RECOMMENDATION: 6 Month F/U Results were provided to the patient at time of visit by the technologist. This patient's information was entered into a reminder system with a target due date for their next mammogram. Electronically signed by: Chelsea Ibrahim DO 08/23/2025 01:56 PM EDT
== END 2025-08-23 12:20 | disposition home or self-care (01) ==
LOC: HO.MAMMO 12:19
PROVIDERS: PCP Internal Medicine; Visit Provider Internal Medicine
DX: N64.89 Other specified disorders of breast (principal)
CPT/HCPCS: 76642; 77061; 77065

== ENCOUNTER → 2025-08-23 12:30 | Outpatient (BNV) | payer OTHER, SELFPAY | PROVIDERS: PCP Internal Medicine; Visit Provider Internal Medicine | DX: R92.8 Other abnormal and inconclusive findings on diagnostic imaging of breast (principal) | CPT/HCPCS: 76642; 77061; 77065 ==